=== PATIENT | male | born 1990 | race Caucasian/White ===

== ENCOUNTER 2019-04-07 02:56 | Emergency (ER) | payer OTHER ==
[~2019-04-07] VITALS: Ht 167.6 cm; Wt 63.0 kg
[2019-04-07] MEDS ORDERED: ONDANSETRON HCL 4MG/2ML INJ IV ONE ×2 (04:15→06:15)
[2019-04-07] MEDS ORDERED: MORPHINE SULFATE 4 MG/ML CPJ (NOT FOR IM USE) IV ONE ×2 (04:15→06:15)
[2019-04-07] MEDS ORDERED: TETANUS, DIPHTHERIA, PERTUSSIS VAC/PF 0.5ML (>7YR OLD) IM ONE (04:30)
[2019-04-07] MEDS ORDERED: BACITRACIN 15GM TUBE TOP ONE (04:30)
[2019-04-07 04:53] LABS: HEMOGLOBIN. 15.6 g/dL (14.0-18.0); MEAN CORPUSCULAR HEMOGLOBIN 29.3 pg (28.0-32.0); MEAN CORPUSCULAR VOLUME 86.2 fL (80.0-94.0); MEAN PLATELET VOLUME 8.8 fl (7.4-10.4); PLATELET 283 x1000/uL (130-400); RED BLOOD CELL COUNT 5.33 mill/uL (4.7-6.1); RED CELL DISTRIBUTION WIDTH 13.5 % (11.6-14.6)
[2019-04-07 05:01] LABS: CHLORIDE 106 mEq/L (98-107)
[2019-04-07 06:23] LABS: PLATELET ESTIMATE NORMAL
[2019-04-07] MEDS ORDERED: IOHEXOL-350 100 ML BOTTLE ONE (06:34)
[2019-04-07] MEDS ORDERED: KETOROLAC 30MG/ML VIAL IV ONE (08:45)
[2019-04-07 09:40] VITALS: BP 120/70
== END 2019-04-07 09:40 | disposition home or self-care (01) ==
LOC: ER 02:56
DX: S27.0XXA Traumatic pneumothorax, initial encounter (principal); S30.1XXA Contusion of abdominal wall, initial encounter; S80.02XA Contusion of left knee, initial encounter; S09.8XXA Other specified injuries of head, initial encounter; S20.212A Contusion of left front wall of thorax, initial encounter; V43.62XA Car passenger injured in collision with other type car in traffic accident, initial encounter; Y93.89 Activity, other specified; Y92.488 Other paved roadways as the place of occurrence of the external cause
CPT/HCPCS: 36415; 70450; 70498; 71045; 71260; 73562; 74177; 80048; 85025; 90471; 90715; 96374; 96375; 96376; 99284; J1885; J2270; J2405; Q9967; L0172